=== PATIENT | female | born 1955 | race Hispanic/Latino ===

== ENCOUNTER 2018-10-18 11:26 | Day surgery (SDC) | payer BC ==
[~2018-10-18 11:26] MED LIST: IOPIDINE ONE; MYDRIACYL ONE; NEOFRIN ONE
[2018-10-18] MEDS ORDERED: IOPIDINE OD ONE ×2 (11:33→12:13)
[2018-10-18] MEDS ORDERED: MYDRIACYL OD ONE (11:33)
[2018-10-18] MEDS ORDERED: NEOFRIN OD ONE (11:33)
[2018-10-18 11:57] VITALS: BP 169/50
== END 2018-10-18 12:17 | disposition home or self-care (01) ==
LOC: OR 11:26
PROVIDERS: ATTEND Specialist
DX: H26.491 Other secondary cataract, right eye (principal); G43.909 Migraine, unspecified, not intractable, without status migrainosus; K21.9 Gastro-esophageal reflux disease without esophagitis; M19.90 Unspecified osteoarthritis, unspecified site; Z88.2 Allergy status to sulfonamides; Z88.5 Allergy status to narcotic agent; Z88.6 Allergy status to analgesic agent; Z79.899 Other long term (current) drug therapy; Z98.41 Cataract extraction status, right eye; Z98.42 Cataract extraction status, left eye; Z90.49 Acquired absence of other specified parts of digestive tract; Z87.442 Personal history of urinary calculi; Z98.890 Other specified postprocedural states; Z88.8 Allergy status to other drugs, medicaments and biological substances; Z86.2 Personal history of diseases of the blood and blood-forming organs and certain disorders involving the immune mechanism